=== PATIENT | female | born 1945 | race Caucasian/White ===

== ENCOUNTER 2023-07-11 06:59 | Inpatient (IN) | payer MEDICARE, OTHER ==
[~2023-07-11] VITALS: Ht 165.1 cm; Wt 73.5 kg
[2023-07-11] MEDS ORDERED: dexaMETHasone SOD PHOSPHATE 1 ML ONE (07:02)
[2023-07-11] MEDS ORDERED: LIDOCAINE 2%-EPI 1:100,000 30 ML VIAL ONE (07:02)
[2023-07-11] MEDS ORDERED: ANESTHESIA TRAY IN PYXIS 1 EA TRAY MC ONE (07:02)
[2023-07-11] MEDS ORDERED: VANCOMYCIN 1 GM VIAL ONE (07:03)
[2023-07-11] MEDS ORDERED: FENTANYL PF 100MCG/2ML AMPUL ONE (07:18)
[2023-07-11] MEDS ORDERED: MIDAZOLAM HCL 2 MG/2ML VIAL ONE (07:19)
[2023-07-11] MEDS ORDERED: ROCURONIUM BROMIDE 50 MG/5 ML ONE (07:19)
[2023-07-11] MEDS ORDERED: FAMOTIDINE/PF INJ 20 MG/2 ML VIAL IV ONE (07:19)
[2023-07-11] MEDS ORDERED: KETAMINE HCL (500MG/10ML) 50 MG/ML VIAL ONE (07:19)
[2023-07-11] MEDS ORDERED: LIDOCAINE 2% JEL UROJET 10 ML MM ONE (07:20)
[2023-07-11] MEDS ORDERED: OXYMETAZOLINE HCL NASAL SPRAY 30 ML BOTTLE NS ONE (07:20)
[2023-07-11] MEDS ORDERED: BACITRACIN OPHTH OINT 3.5 GM TUBE ONE (07:34)
[2023-07-11] MEDS ORDERED: SUCCINYLCHOLINE CHLORIDE 20 MG/ML VIAL ONE (10:23)
[2023-07-11] MEDS ORDERED: LABETALOL HCL IV 100MG VIAL ONE (10:31)
[2023-07-11] MEDS ORDERED: HYDROMORPHONE 1 MG/1 ML DISP.SYRIN ONE (11:15)
[2023-07-11] MEDS ORDERED: KETOROLAC TROMETHAMINE INJ 30 MG/ML VIAL ONE (11:36)
[2023-07-11 12:30] VITALS: BP 183/86; TEMP 94.6; O2SAT 94
[2023-07-11] MEDS ORDERED: LOSA50TA39 PO (12:58)
[2023-07-11] MEDS ORDERED: TEMA30CA PO (12:58)
[2023-07-11] MEDS ORDERED: METO-357 PO (12:58)
[2023-07-11] MEDS ORDERED: ASPI-1420 PO (12:58)
[2023-07-11] MEDS ORDERED: DONE10TA44 PO (12:58)
[2023-07-11] MEDS ORDERED: CLON0.1T PO (12:58)
[2023-07-11] MEDS ORDERED: ESOM40CA PO (12:58)
[2023-07-11] MEDS ORDERED: LEVO112T2 PO (12:58)
[2023-07-11] MEDS ORDERED: LOSA1TAB36 PO (12:58)
[2023-07-11] MEDS ORDERED: MEMA28CA5 PO (12:58)
[2023-07-11] MEDS ORDERED: METF-440 PO (12:58)
[2023-07-11] MEDS ORDERED: SIMV-46 PO (12:58)
[2023-07-11 13:00] VITALS: BP 136/77; TEMP 96.2; O2SAT 96
[2023-07-11] MEDS ORDERED: IV NS 0.9% 1,000 ML IV PRN (13:00)
[2023-07-11] MEDS ORDERED: ONDANSETRON HCL/PF 4 MG/2 ML VIAL IV PRN (13:30)
[2023-07-11] MEDS ORDERED: HYDROMORPHONE 1 MG/1 ML DISP.SYRIN IV PRN (13:30)
[2023-07-11] MEDS: ACETAMINOPHEN 325 MG TABLET PO PRN (13:43)
[2023-07-11] MEDS ORDERED: IPRATROPIUM BROMIDE 14 GM INHALER (or 12.9 GM) IH ONE (14:30)
[2023-07-11 15:43] VITALS: BP 164/77; TEMP 97.2; O2SAT 97
[2023-07-11 16:00] VITALS: BP 153/67; TEMP 97.5; O2SAT 91
[2023-07-11 16:59] VITALS: BP 153/67; TEMP 97.5; O2SAT 91
[2023-07-11] MEDS ORDERED: ACETAMINOPHEN 325 MG TABLET PO PRN (17:00)
[2023-07-11] MEDS ORDERED: MAG HYDROX/AL HYDROX/SIMETH 30 ML UDC PO PRN (17:00)
[2023-07-11] MEDS ORDERED: ONDANSETRON HCL/PF 4 MG/2 ML VIAL IVP PRN (17:00)
[2023-07-11] MEDS ORDERED: Z GUARD REMEDY 4 OZ OINT TP PRN (17:00)
[2023-07-11] MEDS ORDERED: MAGNESIUM HYDROXIDE 30 ML UDC PO PRN (17:00)
[2023-07-11 20:00] VITALS: BP_SYST 159; BP_DIAS 81; BP_DIAS 82; TEMP 97.9; O2SAT 95
[2023-07-11] MEDS: VANCOMYCIN 1 GM in IV D5W 250ml IV SCH (20:06)
[2023-07-11] MEDS: LOSARTAN/HCTZ 50-12.5MG/ 1 EA TABLET PO ONE (22:43)
[2023-07-11] MEDS: TEMAZEPAM 15 MG CAPSULE PO PRN (22:43)
[2023-07-12] MEDS ORDERED: LIDOCAINE VISCOUS 2% UD 15 ML UDC MM ONE (06:30)
[2023-07-12] MEDS ORDERED: LIDOCAINE VISCOUS 2% UD 15 ML UDC MM SCH (06:30)
[2023-07-12 07:19] LABS: BASOPHILS % (AUTO) 0.3 % (0.0-2.0); EOSINOPHILS % (AUTO) 0.3 % (0.0-6.0); HEMATOCRIT 33 % (33-45); LYMPHOCYTES # (AUTO) 1.6 K/uL (0.8-4.8); LYMPHOCYTES % (AUTO) 14.3 % (20.0-44.0); MEAN CORPUSCULAR HEMOGLOBIN 28 PG (26.0-33.0); MEAN CORPUSCULAR HGB CONC 33 g/dl (31.0-36.0); MEAN CORPUSCULAR VOLUME 84 fL (82-100); MONOCYTES # (AUTO) 0.9 K/uL (0.1-1.30); MONOCYTES % (AUTO) 8.5 % (2.0-12.0); NEUTROPHILS # (AUTO) 8.5 K/uL (1.8-8.9); NEUTROPHILS % (AUTO) 76.6 % (43.0-81.0); PLATELET COUNT (AUTO) 238 K/uL (150-450); RED BLOOD CELL COUNT(AUTO) 3.97 MIL/uL (4.0-5.2); RED CELL DISTRIBUTION WIDTH 14.2 % (11.5-15.0); WHITE BLOOD COUNT (AUTO) 11.1 K/uL (4.3-11.0)
[2023-07-12 08:00] VITALS: BP 160/89; TEMP 98.6; O2SAT 94
[2023-07-12 08:14] LABS: CALCIUM, SERUM 8.5 mg/dL (8.5-10.1); CARBON DIOXIDE 27 mmol/L (21-32); CHLORIDE 108 mmol/L (98-107); CREATININE 0.8 mg/dL (0.6-1.3); GLUCOSE 100 mg/dL (74-106); MAGNESIUM 1.8 mg/dL (1.8-2.4); PHOSPHORUS 3.7 mg/dL (2.5-4.9); POTASSIUM 3.6 mmol/L (3.5-5.1); SODIUM SERUM 144 mmol/L (136-145); UREA NITROGEN, BLOOD 16 mg/dL (7-18)
[2023-07-12] MEDS: ASPIRIN EC 81 MG TABLET.DR PO SCH (09:13)
[2023-07-12] MEDS: LOSARTAN POTASSIUM 50 MG TABLET PO SCH (09:13)
[2023-07-12] MEDS: MEMANTINE HCL 5 MG TABLET PO SCH (09:13)
[2023-07-12] MEDS: DONEPEZIL 5 MG TABLET PO SCH (09:13)
[2023-07-12] MEDS: METFORMIN 500 MG TABLET PO SCH (09:13)
[2023-07-12 09:14] VITALS: BP 159/89
[2023-07-12] MEDS: METOPROLOL SUCCINATE 50 MG TAB.SR.24H PO SCH (09:14)
[2023-07-12] MEDS: PANTOPRAZOLE 40 MG TABLET.DR PO SCH (09:21)
[2023-07-12] MEDS: LEVOTHYROXINE SODIUM 112 MCG TABLET PO SCH (09:21)
[2023-07-12] MEDS ORDERED: SIMVASTATIN 20 MG TABLET PO SCH (22:00)
== END 2023-07-12 04:11 | disposition home or self-care (01) | DRG 142 ==
LOC: DS 06:59 → MED 12:35
PROVIDERS: ADMIT Internal Medicine; ATTEND Internal Medicine
PROC: 0NBV0ZX Excision of Left Mandible, Open Approach, Diagnostic (ICD-10-PCS; principal; 2023-07-11)
PROC: 0NSR0ZZ Reposition Maxilla, Open Approach (ICD-10-PCS; 2023-07-11)
PROC: 0NUV07Z Supplement Left Mandible with Autologous Tissue Substitute, Open Approach (ICD-10-PCS; 2023-07-11)
PROC: 0NSV0ZZ Reposition Left Mandible, Open Approach (ICD-10-PCS; 2023-07-11)
PROC: 0NUR07Z Supplement Maxilla with Autologous Tissue Substitute, Open Approach (ICD-10-PCS; 2023-07-11)
PROC: 0NST0ZZ Reposition Right Mandible, Open Approach (ICD-10-PCS; 2023-07-11)
PROC: 0NUT07Z Supplement Right Mandible with Autologous Tissue Substitute, Open Approach (ICD-10-PCS; 2023-07-11)
PROC: 0NBR0ZX Excision of Maxilla, Open Approach, Diagnostic (ICD-10-PCS; 2023-07-11)
PROC: 0NBT0ZX Excision of Right Mandible, Open Approach, Diagnostic (ICD-10-PCS; 2023-07-11)
DX: S02.40CA Maxillary fracture, right side, initial encounter for closed fracture (principal); S02.69XA Fracture of mandible of other specified site, initial encounter for closed fracture; X58.XXXA Exposure to other specified factors, initial encounter; Y93.9 Activity, unspecified; Y92.009 Unspecified place in unspecified non-institutional (private) residence as the place of occurrence of the external cause; M27.2 Inflammatory conditions of jaws; E66.9 Obesity, unspecified; E89.0 Postprocedural hypothyroidism; G47.33 Obstructive sleep apnea (adult) (pediatric); I10 Essential (primary) hypertension; Z85.850 Personal history of malignant neoplasm of thyroid; Z86.011 Personal history of benign neoplasm of the brain; Z87.891 Personal history of nicotine dependence; Z92.3 Personal history of irradiation; E11.9 Type 2 diabetes mellitus without complications; C73 Malignant neoplasm of thyroid gland; D16.4 Benign neoplasm of bones of skull and face; J32.0 Chronic maxillary sinusitis; Z68.27 Body mass index [BMI] 27.0-27.9, adult
CPT/HCPCS: 36415; 80048-TC; 82962-TC; 83735-TC; 84100-TC; 85025-TC; 88305-TC; 88311-TC; 88312-TC; A4223; C1713; G0378; J0330; J1100; J1170; J1885; J2250; J2405; J2704; J2765; J3010; J3370; J3490; J7030; J7060

== ENCOUNTER 2023-11-14 08:58 | Inpatient (IN) | payer MEDICARE, OTHER ==
[~2023-11-14] VITALS: Ht 165.1 cm; Wt 72.6 kg
[~2023-11-14 08:58] MED LIST: ASPI-1420 PO; CLON0.1T PO; DONE10TA44 PO; ESOM40CA PO; LEVO112T2 PO; LOSA1TAB36 PO; LOSA50TA39 PO; MEMA28CA5 PO; METF-440 PO; METO-357 PO; SIMV-46 PO; TEMA30CA PO
[2023-11-14] MEDS ORDERED: dexaMETHasone SOD PHOSPHATE 0 ML ONE (12:21)
[2023-11-14] MEDS ORDERED: LIDOCAINE 2%-EPI 1:100,000 30 ML VIAL ONE (12:21)
[2023-11-14] MEDS ORDERED: OXYMETAZOLINE HCL NASAL SPRAY 30 ML BOTTLE NS ONE (12:21)
[2023-11-14] MEDS ORDERED: VANCOMYCIN 1 GM VIAL ONE (12:22)
[2023-11-14] MEDS ORDERED: LIDOCAINE 2% JEL UROJET 10 ML MM ONE (12:24)
[2023-11-14] MEDS ORDERED: FENTANYL PF 100MCG/2ML AMPUL ONE (12:24)
[2023-11-14] MEDS ORDERED: HYDROMORPHONE 1 MG/1 ML DISP.SYRIN IV PRN (14:30)
[2023-11-14] MEDS ORDERED: ACETAMINOPHEN 325 MG TABLET PO PRN ×2 (14:30→16:00)
[2023-11-14] MEDS ORDERED: ONDANSETRON HCL/PF 4 MG/2 ML VIAL IV PRN (14:30)
--- NOTE | 2023-11-14 14:55 | NUR ---
ADMISSION NOTE PATIENT ADMITTED TO UNIT VIA GURNEY, ACCOMPANIED BY 2 OR STAFF. PATIENT IS S/P CALWELL-RYAN RIGHT, RECONSTRUCTION OF THE SINUS FLOOR WITH CRITICAL BONE GRAFT BY HAL MARQUEZ. PATIENT IS A/O X4, MALDIVIAN SPEAKING, ABLE TO MAKE NEEDS KNOWN. INITIAL VS TAKEN: BP-135/75 , NV-71, RR- 18, T-97.9 , [id number]. PATIENT IS BREATHING EVENLY AND UNLABORED ON RA, NO SOB. NO DISTRESS NOTED. PATIENT DENIES ANY PAIN AT THIS TIME. IV ACCESS ON RAC #20G, INTACT AND PATENT. PATIENT WAS ORIENTED TO ROOM AND HOW TO USE THE CALL LIGHT. BELONGINGS ACCOUNTED FOR. SAFETY MEASURES IN PLACE: BED ALARM ON, BED IN LOW AND LOCKED POSITION, SIDE RAILS UP X2, CALL LIGHT WITHIN EASY REACH. PLAN OF CARE ONGOING.
[2023-11-14 16:00] VITALS: BP 135/71; TEMP 97.5; O2SAT 80
[2023-11-14] MEDS ORDERED: MAGNESIUM HYDROXIDE 30 ML UDC PO PRN (16:00)
[2023-11-14] MEDS ORDERED: ZOLPIDEM TARTRATE 5 MG TABLET PO PRN (16:00)
[2023-11-14] MEDS ORDERED: ONDANSETRON HCL/PF 4 MG/2 ML VIAL IVP PRN (16:00)
[2023-11-14] MEDS ORDERED: Z GUARD REMEDY 4 OZ OINT TP PRN (16:00)
[2023-11-14] MEDS ORDERED: MAG HYDROX/AL HYDROX/SIMETH 30 ML UDC PO PRN (16:00)
[2023-11-14] MEDS: IV NS 0.9% 1,000 ML IV PRN (16:13)
[2023-11-14] MEDS ORDERED: CHOL200026 PO (16:14)
[2023-11-14] MEDS ORDERED: MULT-1157 PO (16:14)
[2023-11-14] MEDS ORDERED: CALC-1239 PO (16:14)
[2023-11-14] MEDS ORDERED: ESCI10TA PO (16:14)
[2023-11-14] MEDS ORDERED: CLONIDINE HCL 0.1 MG TABLET PO PRN (16:30)
[2023-11-14] MEDS ORDERED: LOSARTAN/HCTZ 50-12.5MG/ 1 EA TABLET PO SCH (18:00)
--- NOTE | 2023-11-14 19:05 | NUR ---
RN CLOSING NOTE PATIENT IS AWAKE IN BED WITH DAUGHTER AT BEDSIDE. A/O X4, KITTITIAN SPEAKING, ABLE TO MAKE NEEDS KNOWN. ON 2L O2 VIA NC, TOLERATING WELL, BREATHING EVENLY AND UNLABORED. NO DISTRESS. NO SHORTNESS OF BREATH NOTED AT THIS TIME. PATIENT HAS IV ACCESS ON RAC #20G, INTACT, PATENT, INFUSING NS @ 30ML/HR. CARE RENDERED. NEEDS ATTENDED. FALL AND SAFETY MEASURES MAINTAINED: BED ALARM ON, BED IN LOW AND LOCKED POSITION. CALL LIGHT AND TABLE WITHIN EASY REACH, SIDE RAILS UP X2. WILL ENDORSE TO REGISTER OF WILLS NURSE FOR CONTINUITY OF CARE.
--- NOTE | 2023-11-14 19:15 | NUR ---
MS RN OPENING NOTES RECEIVED PATIENT AWAKE IN BED, HOB ELEVATED, WATCHING TV, DAUGHTER AT BEDSIDE. A&O X 4. AMBULATORY TO THE BATHROOM WITH STEADY GAIT. ABLE TO MAKE NEEDS KNOWN. PORTUGUESE SPEAKING BUT ABLE TO UNDERSTAND AND SPEAK ARMENIAN. PT IS ON O2 @ 2LPM VIA NASAL CANNULA. NO SIGNS OF ACUTE DISTRESS NOTED. PATIENT DENIES ANY PAIN OR ANY DISCOMFORT AT THIS TIME. PATIENT DENIES ANY , DIZZINESS, OR SOB AT THIS MOMENT. WITH IV ACCESS ON RIGHT AC G#20 - SL PATENT, INTACT, AND FLUSHES WELL WITH NO S/SX OF INFILTRATION NOTED. FALL AND SAFETY MEASURES ARE IN PLACE: CALL LIGHT AND TABLE WITHIN EASY REACH, SIDE RAILS UP X 2, BED LOCKED IN LOWEST POSITION, HOB ELEVATED, BED ALARM ON. PLAN OF CARE ONGOING.
[2023-11-14 20:00] VITALS: BP 134/72; TEMP 98.4; O2SAT 97
[2023-11-14] MEDS: TEMAZEPAM 15 MG CAPSULE PO SCH (21:06)
[2023-11-14] MEDS: MEMANTINE HCL 5 MG TABLET PO SCH (21:06)
[2023-11-15] MEDS: VANCOMYCIN 1 GM in IV D5W 250ml IV SCH (00:14)
[2023-11-15 06:32] LABS: BASOPHILS % (AUTO) 0.1 % (0.0-2.0); HEMATOCRIT 36 % (33-45); HEMOGLOBIN 11.9 g/dL (11.5-14.8); LYMPHOCYTES # (AUTO) 0.8 K/uL (0.8-4.8); LYMPHOCYTES % (AUTO) 11.9 % (20.0-44.0); MEAN CORPUSCULAR HEMOGLOBIN 28 PG (26.0-33.0); MEAN CORPUSCULAR HGB CONC 33 g/dl (31.0-36.0); MEAN CORPUSCULAR VOLUME 84 fL (82-100); MONOCYTES # (AUTO) 0.9 K/uL (0.1-1.30); MONOCYTES % (AUTO) 12.9 % (2.0-12.0); NEUTROPHILS % (AUTO) 75.1 % (43.0-81.0); PLATELET COUNT (AUTO) 225 K/uL (150-450); RED CELL DISTRIBUTION WIDTH 15.3 % (11.5-15.0); WHITE BLOOD COUNT (AUTO) 6.7 K/uL (4.3-11.0)
[2023-11-15 06:45] LABS: CALCIUM, SERUM 8.1 mg/dL (8.5-10.1); CARBON DIOXIDE 26 mmol/L (21-32); CHLORIDE 104 mmol/L (98-107); CREATININE 0.8 mg/dL (0.6-1.3); GLUCOSE 125 mg/dL (74-106); MAGNESIUM 1.7 mg/dL (1.8-2.4); PHOSPHORUS 3.7 mg/dL (2.5-4.9); POTASSIUM 4.7 mmol/L (3.5-5.1); SODIUM SERUM 142 mmol/L (136-145); UREA NITROGEN, BLOOD 17 mg/dL (7-18)
--- NOTE | 2023-11-15 07:00 | NUR ---
RN OPENING NOTES RECEIVED PATIENT AWAKE ON BED . A/O X 4. . ABLE TO MAKE NEEDS KNOWN. BENINESE SPEAKING . ON O2 @ 2LPM VIA NC. NO SIGNS OR SYMPTOMS OF ANY ACUTE RESPIRATORY DISTRESS NOTED AT THIS TIME. NO COMPLAINS OF ANY PAIN AT THIS TIME. PT WITH IV ACCESS ON RIGHT AC G20 - PATENT, INTACT, AND FLUSHES WELL WITH NO S/SX OF INFILTRATION NOTED. FALL AND SAFETY MEASURES MAINTAINED: BED LOCKED AND IN LOWEST POSITION, HOB ELEVATED, BED ALARM ON.CALL LIGHT AND TABLE WITHIN EASY REACH, SIDE RAILS UP X 2, PLAN OF CARE ONGOING.
--- NOTE | 2023-11-15 07:20 | NUR ---
MS RN CLOSING NOTES PATIENT AWAKE IN BED, HOB ELEVATED, WATCHING TV, DAUGHTER AT BEDSIDE. A&O X 4. AMBULATORY TO THE BATHROOM WITH STEADY GAIT. ABLE TO MAKE NEEDS KNOWN. PERUVIAN SPEAKING BUT ABLE TO UNDERSTAND AND SPEAK BARBADIAN. PT IS ON O2 @ 2LPM VIA NASAL CANNULA. NO SIGNS OF ACUTE DISTRESS NOTED. PATIENT DENIES ANY PAIN OR ANY DISCOMFORT AT THIS TIME. PATIENT DENIES ANY , DIZZINESS, OR SOB AT THIS MOMENT. WITH IV ACCESS ON RIGHT AC G#20 - SL PATENT, INTACT, AND FLUSHES WELL. ALL DUE MEDS GIVEN. KEPT PATIENT COMFORTABLE. FALL AND SAFETY MEASURES ARE IN PLACE: CALL LIGHT AND TABLE WITHIN EASY REACH, SIDE RAILS UP X 2, BED LOCKED IN LOWEST POSITION, HOB ELEVATED, BED ALARM ON. ENDORSED TO DAY SHIFT NURSE FOR TOMMY.
[2023-11-15 08:00] VITALS: BP 103/52; TEMP 98.6; O2SAT 96
[2023-11-15] MEDS: ASPIRIN EC 81 MG TABLET.DR PO SCH (08:53)
[2023-11-15] MEDS: PANTOPRAZOLE 40 MG TABLET.DR PO SCH (08:53)
[2023-11-15] MEDS: METFORMIN 500 MG TABLET PO SCH (08:53)
[2023-11-15] MEDS: LEVOTHYROXINE SODIUM 112 MCG TABLET PO SCH (08:53)
[2023-11-15] MEDS: DONEPEZIL 5 MG TABLET PO SCH (08:53)
[2023-11-15 08:54] VITALS: BP 103/52
[2023-11-15] MEDS: LOSARTAN POTASSIUM 50 MG TABLET PO SCH (08:54)
[2023-11-15] MEDS: METOPROLOL SUCCINATE 50 MG TAB.SR.24H PO SCH (08:54)
[2023-11-15] MEDS: SIMVASTATIN 20 MG TABLET PO SCH (09:07)
[2023-11-15] MEDS: MAGNESIUM OXIDE 400 MG TABLET PO ONE (11:37)
--- NOTE | 2023-11-15 13:45 | NUR ---
PERFORATOR OPERATOR OIL WELL NOTES PATIENT DISCHARGED TO HOME IN STABLE CONDITION.A/O X4. ABLE TO MAKE NEEDS KNOWN .TOLERATING ROOM AIR WELL WITH NO ACUTE RESPIRATORY DISTRESS NOTED. V/S STABLE.NO SKIN ISSUES OR RASHES NOTED.ALL BELONGINGS CHECKED AND COMPLETE.PT SIGNED BELONGINGS LIST.IV ACCESS REMOVED. NAME ARMBAND REMOVED.[facility] TEACHINGS, MA INSTRUCTIONS GIVEN TO PATIENT, VERBALIZE UNDERSTANDING.PATIENT LEFT UNIT AMBULATORY @1340 ACCOMPANIED BY DAUGHTER IN NO ACUTE SIGNS OF DISTRESS. AWARE
== END 2023-11-15 13:45 | disposition home or self-care (01) | DRG 908 ==
LOC: DS 08:58 → MED 15:25
PROVIDERS: ADMIT Student in an Organized Health Care Education/Training Program; ATTEND Student in an Organized Health Care Education/Training Program
PROC: 09BQ0ZZ Excision of Right Maxillary Sinus, Open Approach (ICD-10-PCS; principal; 2023-11-14)
PROC: 0NUR07Z Supplement Maxilla with Autologous Tissue Substitute, Open Approach (ICD-10-PCS; 2023-11-14)
PROC: 0NBR0ZZ Excision of Maxilla, Open Approach (ICD-10-PCS; 2023-11-14)
PROC: 0NSV04Z Reposition Left Mandible with Internal Fixation Device, Open Approach (ICD-10-PCS; 2023-11-14)
PROC: 0NUV07Z Supplement Left Mandible with Autologous Tissue Substitute, Open Approach (ICD-10-PCS; 2023-11-14)
DX: T86.831 Bone graft failure (principal); S02.40CK Maxillary fracture, right side, subsequent encounter for fracture with nonunion; S02.69XK Fracture of mandible of other specified site, subsequent encounter for fracture with nonunion; T81.83XA Persistent postprocedural fistula, initial encounter; J32.0 Chronic maxillary sinusitis; E11.9 Type 2 diabetes mellitus without complications; E66.9 Obesity, unspecified; G47.33 Obstructive sleep apnea (adult) (pediatric); I10 Essential (primary) hypertension; E89.0 Postprocedural hypothyroidism; Z85.850 Personal history of malignant neoplasm of thyroid; Z86.011 Personal history of benign neoplasm of the brain; Z87.891 Personal history of nicotine dependence; Z92.3 Personal history of irradiation; Z79.84 Long term (current) use of oral hypoglycemic drugs; X58.XXXD Exposure to other specified factors, subsequent encounter; Y83.2 Surgical operation with anastomosis, bypass or graft as the cause of abnormal reaction of the patient, or of later complication, without mention of misadventure at the time of the procedure; Y92.009 Unspecified place in unspecified non-institutional (private) residence as the place of occurrence of the external cause
CPT/HCPCS: 36415; 80048-TC; 82962-TC; 83735-TC; 84100-TC; 85025-TC; 85730-TC; A4223; A4338; C1713; G0378; J0330; J1100; J1170; J1885; J2405; J2704; J2765; J3010; J3370; J3490; J7030; J7050; J7060

== ENCOUNTER 2024-03-25 06:54 | Inpatient (IN) | payer MEDICARE, OTHER ==
[~2024-03-25] VITALS: Ht 165.1 cm; Wt 78.9 kg
[~2024-03-25 06:54] MED LIST changes: -ASPI-1420 PO; +CALC-1239 PO; +CHOL200026 PO; +ESCI10TA PO; +MULT-1157 PO
[2024-03-25] MEDS ORDERED: VANCOMYCIN 1 GM VIAL ONE (09:49)
[2024-03-25] MEDS ORDERED: LIDOCAINE 2%-EPI 1:100,000 30 ML VIAL ONE (09:49)
[2024-03-25] MEDS ORDERED: OXYMETAZOLINE HCL NASAL SPRAY 30 ML BOTTLE NS ONE (09:49)
[2024-03-25] MEDS ORDERED: dexaMETHasone SOD PHOSPHATE 1 ML ONE (09:49)
[2024-03-25] MEDS ORDERED: hydrALAZINE HCL IV 20 MG VIAL ONE (11:02)
[2024-03-25] MEDS ORDERED: HYDROMORPHONE 1 MG/1 ML DISP.SYRIN IV PRN (12:30)
[2024-03-25] MEDS ORDERED: ONDANSETRON HCL/PF 4 MG/2 ML VIAL IV PRN (12:30)
[2024-03-25] MEDS ORDERED: ROSU20TA32 PO (13:12)
[2024-03-25] MEDS: ACETAMINOPHEN 325 MG TABLET PO PRN (13:36)
[2024-03-25] MEDS: IV NS 0.9% 1,000 ML IV PRN (17:21)
[2024-03-25] MEDS ORDERED: ONDANSETRON HCL/PF 4 MG/2 ML VIAL IVP PRN (19:00)
[2024-03-25] MEDS ORDERED: TEMAZEPAM 15 MG CAPSULE PO PRN (19:00)
[2024-03-25] MEDS ORDERED: ACETAMINOPHEN 325 MG TABLET PO PRN (19:00)
[2024-03-25] MEDS ORDERED: MAGNESIUM HYDROXIDE 30 ML UDC PO PRN (19:00)
[2024-03-25] MEDS ORDERED: Z GUARD REMEDY 4 OZ OINT TP PRN (19:00)
[2024-03-25] MEDS ORDERED: MAG HYDROX/AL HYDROX/SIMETH 30 ML UDC PO PRN (19:00)
[2024-03-25 20:00] VITALS: BP 124/70; TEMP 97.9; O2SAT 91
[2024-03-25] MEDS: VANCOMYCIN 1 GM in IV D5W 250ml IV SCH (21:30)
[2024-03-26 06:55] LABS: CALCIUM, SERUM 8.7 mg/dL (8.5-10.1); CREATININE 0.9 mg/dL (0.6-1.3); MAGNESIUM 1.9 mg/dL (1.8-2.4); PHOSPHORUS 3.7 mg/dL (2.5-4.9); POTASSIUM 4.3 mmol/L (3.5-5.1)
[2024-03-26 08:00] VITALS: BP 140/72; TEMP 98.1; O2SAT 97
[2024-03-26] MEDS: PANTOPRAZOLE 40 MG TABLET.DR PO SCH (08:13)
[2024-03-26] MEDS ORDERED: HOME MED MISCELLANEOUS XX SCH (08:30)
[2024-03-26] MEDS ORDERED: CLONIDINE HCL 0.1 MG TABLET PO PRN (08:30)
[2024-03-26] MEDS: LOSARTAN/HCTZ 50-12.5MG/ 1 EA TABLET PO SCH (08:30)
[2024-03-26] MEDS: METOPROLOL SUCCINATE 50 MG TAB.SR.24H PO SCH (09:21)
[2024-03-26] MEDS: CALCIUM CARB 600MG /VIT D 1 EACH TABLET PO SCH (09:21)
[2024-03-26] MEDS: MEMANTINE HCL 5 MG TABLET PO SCH (09:21)
[2024-03-26] MEDS: CHOLECALCIFEROL 1,000 UNIT TABLET (VIT D3) PO SCH (09:21)
[2024-03-26] MEDS: ESCITALOPRAM OXALATE (10 MG) 10 MG TABLET PO SCH (09:21)
[2024-03-26 09:22] VITALS: BP 140/72
[2024-03-26] MEDS: LOSARTAN POTASSIUM 50 MG TABLET PO SCH (09:22)
[2024-03-26] MEDS: LEVOTHYROXINE SODIUM 112 MCG TABLET PO SCH (09:24)
[2024-03-26] MEDS: METFORMIN 500 MG TABLET PO SCH (10:05)
[2024-03-26 10:15] LABS: BASOPHILS % (AUTO) 0.4 % (0.0-2.0); EOSINOPHILS % (AUTO) 0.3 % (0.0-6.0); HEMATOCRIT 34 % (33-45); HEMOGLOBIN 11.3 g/dL (11.5-14.8); LYMPHOCYTES # (AUTO) 1.4 K/uL (0.8-4.8); LYMPHOCYTES % (AUTO) 13.7 % (20.0-44.0); MEAN CORPUSCULAR HEMOGLOBIN 28 PG (26.0-33.0); MEAN CORPUSCULAR HGB CONC 34 g/dl (31.0-36.0); MEAN CORPUSCULAR VOLUME 84 fL (82-100); MONOCYTES % (AUTO) 9.7 % (2.0-12.0); NEUTROPHILS % (AUTO) 75.9 % (43.0-81.0); PLATELET COUNT (AUTO) 210 K/uL (150-450); RED BLOOD CELL COUNT(AUTO) 4.02 MIL/uL (4.0-5.2); RED CELL DISTRIBUTION WIDTH 14.2 % (11.5-15.0); WHITE BLOOD COUNT (AUTO) 10.5 K/uL (4.3-11.0)
[2024-03-26] MEDS ORDERED: ATORVASTATIN 40 MG TABLET PO SCH (22:00)
[2024-03-26] MEDS ORDERED: DONEPEZIL 5 MG TABLET PO SCH (22:00)
== END 2024-03-26 11:00 | disposition home or self-care (01) | DRG 908 ==
LOC: DS 06:54 → MED 12:17
PROVIDERS: ADMIT Nurse Practitioner Acute Care; ATTEND Nurse Practitioner Acute Care
PROC: 0NPW04Z Removal of Internal Fixation Device from Facial Bone, Open Approach (ICD-10-PCS; principal; 2024-03-25)
PROC: 0WB30ZZ Excision of Oral Cavity and Throat, Open Approach (ICD-10-PCS; 2024-03-25)
PROC: 0N5R0ZZ Destruction of Maxilla, Open Approach (ICD-10-PCS; 2024-03-25)
PROC: 0NUR07Z Supplement Maxilla with Autologous Tissue Substitute, Open Approach (ICD-10-PCS; 2024-03-25)
PROC: 0NSR0ZZ Reposition Maxilla, Open Approach (ICD-10-PCS; 2024-03-25)
DX: T86.831 Bone graft failure (principal); S02.40CK Maxillary fracture, right side, subsequent encounter for fracture with nonunion; T84.69XA Infection and inflammatory reaction due to internal fixation device of other site, initial encounter; E78.5 Hyperlipidemia, unspecified; E11.9 Type 2 diabetes mellitus without complications; I10 Essential (primary) hypertension; E66.9 Obesity, unspecified; E89.0 Postprocedural hypothyroidism; F32.A Depression, unspecified; Y83.2 Surgical operation with anastomosis, bypass or graft as the cause of abnormal reaction of the patient, or of later complication, without mention of misadventure at the time of the procedure; Z85.850 Personal history of malignant neoplasm of thyroid; Z86.011 Personal history of benign neoplasm of the brain; Z87.891 Personal history of nicotine dependence; Z92.3 Personal history of irradiation; X58.XXXD Exposure to other specified factors, subsequent encounter; Y83.8 Other surgical procedures as the cause of abnormal reaction of the patient, or of later complication, without mention of misadventure at the time of the procedure; Y92.009 Unspecified place in unspecified non-institutional (private) residence as the place of occurrence of the external cause; M89.38 Hypertrophy of bone, other site; J32.0 Chronic maxillary sinusitis
CPT/HCPCS: 36415; 80048-TC; 82962-TC; 83735-TC; 84100-TC; 85025-TC; A4223; A4338; C1713; G0378; J0360; J0461; J0690; J1100; J2704; J3370; J3490; J7030; J7050; J7060